=== PATIENT | male | born 1970 | race Caucasian/White ===

== ENCOUNTER 2022-04-27 08:57 | Outpatient (CLI) | payer BC, SELFPAY ==
[2022-04-27 12:46] LABS: Chloride* 103 mmol/L (96-114); Potassium* 4.2 mmol/L (3.6-5.1); Sodium* 138 mmol/L (135-149)
[2022-04-27 12:49] LABS: Blood Urea Nitrogen* 24 mg/dL (7-30); Calcium* 9.3 mg/dL (8.4-10.6); Carbon Dioxide* 29 mmol/L (20-32); Cholesterol* 205 mg/dL (90-199); Creatinine* 1.4 mg/dL (0.5-1.5); Estimated Glomerular Filt Rate 61 ml/min; Glucose* 100 mg/dL (60-115); Triglycerides* 103 mg/dL (40-149)
[2022-04-27 12:50] LABS: HDL Cholesterol* 48 mg/dL (>=40); LDL Cholesterol Calculated 136 mg/dL (<100)
[2022-04-27 13:17] LABS: PSA Screen* 0.45 ng/mL (0.10-4.00)
== END 2022-04-27 08:58 | disposition home or self-care (01) ==
PROVIDERS: PCP Family Medicine; Visit Provider Family Medicine
DX: Z00.00 Encounter for general adult medical examination without abnormal findings (principal); N18.9 Chronic kidney disease, unspecified; E78.5 Hyperlipidemia, unspecified
CPT/HCPCS: 80048; 80061; 84153

== ENCOUNTER 2022-12-26 15:37 | Outpatient (CLI) | payer BC, SELFPAY | END 2022-12-26 15:38 | disposition home or self-care (01) | LOC: LKVREF 15:40 | PROVIDERS: PCP Family Medicine; Visit Provider Family Medicine | DX: B99.9 Unspecified infectious disease (principal); W57.XXXA Bitten or stung by nonvenomous insect and other nonvenomous arthropods, initial encounter | CPT/HCPCS: 86618 ==

== ENCOUNTER 2023-09-05 10:16 | Outpatient (CLI) | payer BC, SELFPAY | END 2023-09-05 10:17 | disposition home or self-care (01) | PROVIDERS: PCP Family Medicine; Visit Provider Family Medicine | DX: Z00.00 Encounter for general adult medical examination without abnormal findings (principal); I10 Essential (primary) hypertension; E78.00 Pure hypercholesterolemia, unspecified; N18.9 Chronic kidney disease, unspecified; K21.9 Gastro-esophageal reflux disease without esophagitis; N28.0 Ischemia and infarction of kidney; R76.0 Raised antibody titer; Z12.5 Encounter for screening for malignant neoplasm of prostate | CPT/HCPCS: 80053; 80061; G0103 ==

== ENCOUNTER 2024-07-04 15:02 | Outpatient (CLI) | payer BC, SELFPAY | END 2024-07-04 15:03 | disposition home or self-care (01) | LOC: LKVREF 15:02 | PROVIDERS: PCP Family Medicine; Visit Provider Family Medicine | DX: I10 Essential (primary) hypertension (principal); N18.9 Chronic kidney disease, unspecified | CPT/HCPCS: 80048 ==

== ENCOUNTER 2024-09-02 14:27 | Outpatient (CLI) | payer BC, SELFPAY | END 2024-09-02 14:28 | disposition home or self-care (01) | PROVIDERS: PCP Family Medicine; Visit Provider Family Medicine | DX: I10 Essential (primary) hypertension (principal); E78.00 Pure hypercholesterolemia, unspecified; N18.9 Chronic kidney disease, unspecified; N28.0 Ischemia and infarction of kidney; Z12.5 Encounter for screening for malignant neoplasm of prostate | CPT/HCPCS: 80061; 80076; G0103 ==